=== PATIENT | female | born 1995 | race Two or more races ===

== ENCOUNTER 2016-10-06 22:46 | Emergency (ER) | payer SELFPAY ==
[2016-10-06] MEDS ORDERED: DIPHENHYDRAMINE HCL 50 MG CAPSULE PO ONE (23:44)
[2016-10-06] MEDS ORDERED: FAMOTIDINE 20 MG TABLET PO ONE (23:44)
--- NOTE | 2016-10-06 23:44 | ER Document Report ---
ED Allergic Reaction - General Chief Complaint: Possible Nut allergy Stated Complaint: POSSIBLE ALLERGIC REACTION Time Seen by Provider: 10/06/16 23:44 Mode of Arrival: Ambulatory Information source: Patient TRAVEL OUTSIDE OF THE [place] IN LAST 30 DAYS: No - HPI Patient complains to provider of: Possible allergic reaction Onset: Just prior to arrival Onset/Duration: Sudden Quality of pain: No pain Food exposure: Nuts Swelling: Lip(s) Associated symptoms: None Similar symptoms previously: No Recently seen / treated by doctor: No Notes: Patient is a 20-year-old female who presents to the emergency room complaining of possible allergic reaction, shortly before coming to the emergency room she eats some cheese and then drink some almond milk which she drinks and eats regularly, shortly after ingesting this she developed some itchiness in her mouth and felt as though the left upper lip was swollen, and she is now complaining of some posterior throat pain as well, no history of similar symptoms previously, she does have a known allergy to apples and peaches, she denies any difficulty swallowing or breathing, patient did not take anything for her symptoms prior to coming to the emergency room Past Medical History - General Information source: Patient - Social History Smoking Status: Never Smoker Family History: Reviewed & Not Pertinent Renal/ Medical History: Denies: Hx Peritoneal Dialysis Review of Systems - Review of Systems Constitutional: No symptoms reported EENT: See HPI Cardiovascular: No symptoms reported Respiratory: No symptoms reported Gastrointestinal: No symptoms reported Genitourinary: No symptoms reported Female Genitourinary: No symptoms reported Musculoskeletal: No symptoms reported Skin: No symptoms reported Hematologic/Lymphatic: No symptoms reported Neurological/Psychological: No symptoms reported -: Yes All other systems reviewed and negative Physical Exam - Vital signs Vitals: Temp Pulse Resp BP Pulse Ox 98.2 F 66 16 119/68 100 10/06/16 23:07 10/06/16 23:07 10/06/16 23:07 10/06/16 23:07 10/06/16 23:07 Interpretation: Normal - General General appearance: Appears well, Alert - HEENT Head: Normocephalic, Atraumatic Eyes: Normal Conjunctiva: Normal Extraocular movements intact: Yes Eyelashes: Normal Pupils: PERRL Pharynx: Erythema. No: Uvular edema, Potential airway comprom. - Respiratory Respiratory status: No respiratory distress Chest status: Nontender Breath sounds: Normal Chest palpation: Normal - Cardiovascular Rhythm: Regular Heart sounds: Normal auscultation Murmur: No - Abdominal Inspection: Normal Distension: No distension Bowel sounds: Normal Tenderness: Nontender Organomegaly: No organomegaly - Back Back: Normal, Nontender - Extremities General upper extremity: Normal inspection, Nontender, Normal color, Normal ROM , Normal temperature General lower extremity: Normal inspection, Nontender, Normal color, Normal ROM , Normal temperature, Normal weight bearing. No: Columba's sign - Neurological Neuro grossly intact: Yes Cognition: Normal Orientation: AAOx4 Jasiel Coma Scale Eye Opening: Spontaneous Jasiel Coma Scale Verbal: Oriented Jasiel Coma Scale Motor: Obeys Commands [place] Coma Scale Total: 15 Speech: Normal Motor strength normal: LUE, RUE, LLE, RLE Sensory: Normal - Psychological Associated symptoms: Normal affect, Normal mood - Skin Skin Temperature: Warm Skin Moisture: Dry Skin Color: Normal Course - Re-evaluation Re-evalutation: 10/07/16 00:50 Physical exam findings are unremarkable except for mild posterior pharynx erythema, patient was given a dose of Pepcid and Benadryl as well as a prescription for both of these, advised to follow-up with an fire fighter [facility], avoid almond milk and she is at this point in time until actual allergy can be established, patient acknowledges understanding and agreement with this plan - Vital Signs Vital signs: Temp Pulse Resp BP Pulse Ox 98.2 F 72 20 121/70 100 10/06/16 23:07 10/07/16 00:02 10/07/16 00:02 10/07/16 00:02 10/07/16 00:02 Discharge - Discharge Clinical Impression: Allergic reaction Condition: Stable Disposition: HOME, SELF-CARE Instructions: Acute Allergic Reaction ([facility]) Additional Instructions: Follow up with your primary care provider in one to 2 days. Return to the emergency room immediately if symptoms worsen or any additional concerns. Prescriptions: Diphenhydramine HCl [Benadryl 25 Mg Capsule] 25 mg PO Q6 #30 capsule Famotidine [Pepcid 20 mg Tablet] 20 mg PO BID #12 tablet
[2016-10-07 00:07] VITALS: BP 121/70
== END 2016-10-07 00:03 | disposition home or self-care (01) ==
LOC: ER 22:46
DX: T78.40XA Allergy, unspecified, initial encounter (principal); X58.XXXA Exposure to other specified factors, initial encounter
CPT/HCPCS: 99283

== ENCOUNTER 2017-03-11 12:29 | Emergency (ER) | payer SELFPAY ==
[2017-03-11 12:37] VITALS: BP 104/53
--- NOTE | 2017-03-11 14:02 | ER Document Report ---
ED General - General Mode of Arrival: Ambulatory Information source: Patient TRAVEL OUTSIDE OF THE [place] IN LAST 30 DAYS: No - HPI Patient complains to provider of: Generalized malaise and vaginal bleeding Onset: Other - see notes above Associated symptoms: Other - see notes above <SAMEERA GERMAIN - Last Filed: 03/11/17 15:52> <NIKOS CEE - Last Filed: 03/11/17 20:46> - General Chief Complaint: Vaginal Bleeding Stated Complaint: WEAK,ABDOMINAL PAIN,VAGINAL BLEEDING Time Seen by Provider: 03/11/17 13:54 Notes: 21-year-old female presents to the ED complaining of generalized malaise and headache for the past 2 weeks. Patient is additionally complaining of intermittent dizziness and lightheadedness that last a few seconds and intermittent moderate vaginal bleeding that started yesterday. Patient denies abdominal pain, vomiting, or diarrhea. Patient had a positive test 4 days ago, but when repeated 2 days ago the test was negative. Patient's last menstrual period was 3 months ago secondary to being on control. Patient stopped control 3 days ago. Patient receives [facility] AIDE care from the health department. (SAMEERA GERMAIN) - Related Data Allergies/Adverse Reactions: No Known Allergies Allergy (Unverified 03/11/17 12:33) Home Medications: Current Home Medications l-Norgest/E.estradiol-E.estrad [Seasonique 0.15-0.03-0.01 Tab] 1 each PO ASDIR 03/11/17 [History] Past Medical History - General Information source: Patient Last Menstrual Period: 12/10/16 - Social History Smoking Status: Unknown if Ever Smoked Chew tobacco use (# tins/day): No Frequency of alcohol use: None Drug Abuse: None Family History: Reviewed & Not Pertinent Patient has suicidal ideation: No Patient has homicidal ideation: No Renal/ Medical History: Denies: Hx Peritoneal Dialysis <SAMEERA GERMAIN - Last Filed: 03/11/17 15:52> Review of Systems - Review of Systems Constitutional: See HPI, Malaise EENT: No symptoms reported Cardiovascular: See HPI, Dizziness, Lightheaded Respiratory: No symptoms reported Gastrointestinal: No symptoms reported. denies: Abdominal pain, Diarrhea, Vomiting Genitourinary: No symptoms reported Female Genitourinary: See HPI, Last menstrual period - 3 months ago, Vaginal bleeding Musculoskeletal: No symptoms reported Skin: No symptoms reported Hematologic/Lymphatic: No symptoms reported Neurological/Psychological: See HPI, Headaches -: Yes All other systems reviewed and negative <SAMEERA GERMAIN - Last Filed: 03/11/17 15:52> Physical Exam - General General appearance: Alert In distress: None - HEENT Head: Normocephalic, Atraumatic Eyes: Normal Conjunctiva: Normal - No pallor of conjunctiva. Extraocular movements intact: Yes Pupils: PERRL - Respiratory Respiratory status: No respiratory distress Breath sounds: Normal - Cardiovascular Rhythm: Regular Heart sounds: Normal auscultation - Abdominal Inspection: Normal Distension: No distension Bowel sounds: Normal Tenderness: Nontender - Back Back: Normal - Extremities General upper extremity: Normal inspection, Normal ROM General lower extremity: Normal inspection, Normal ROM, Normal weight bearing - Neurological Neuro grossly intact: Yes Cognition: Normal Orientation: AAOx4 [place] Coma Scale Eye Opening: Spontaneous [place] Coma Scale Verbal: Oriented [place] Coma Scale Motor: Obeys Commands [place] Coma Scale Total: 15 Speech: Normal - Psychological Associated symptoms: Normal affect, Normal mood - Skin Skin Temperature: Warm Skin Moisture: Dry Skin Color: Normal <SAMEERA GERMAIN - Last Filed: 03/11/17 15:52> - Vital signs Vitals: Temp Pulse Resp BP Pulse Ox 99.0 F 78 16 104/53 L 99 03/11/17 12:36 03/11/17 12:36 03/11/17 12:36 03/11/17 12:36 03/11/17 12:36 Course - Laboratory Result Diagrams: 03/11/17 14:12 03/11/17 14:12 <SAMEERA GERMAIN - Last Filed: 03/11/17 15:52> - Laboratory Result Diagrams: 03/11/17 14:12 03/11/17 14:12 <NIKOS CEE - Last Filed: 03/11/17 20:46> - Re-evaluation Re-evalutation: 03/11/17 15:48 Patient found to have mild anemia with no baseline values in electronic medical record system. Patient well-appearing in no distress. Will be discharged with follow-up with primary care physician referral for outpatient iron studies as patient does have microcytic anemia. No evidence of on qualitative testing. Patient has stopped taking control pills over the last several days likely started menses due to her vaginal bleeding. Return precautions provided (NIKOS CEE) - Vital Signs Vital signs: Temp Pulse Resp BP Pulse Ox 99.0 F 78 16 104/53 L 99 03/11/17 12:36 03/11/17 12:36 03/11/17 12:36 03/11/17 12:36 03/11/17 12:36 - Laboratory Laboratory results interpreted by me: 03/11/17 03/11/17 14:12 14:12 Hgb 10.8 L Hct 33.2 L MCV 71 L MCH 23.0 L RDW 16.0 H Eosinophils % 6.8 H Urine Blood LARGE H Ur Leukocyte Esterase TRACE H Discharge <SAMEERA GERMAIN - Last Filed: 03/11/17 15:52> <NIKOS CEE - Last Filed: 03/11/17 20:46> - Discharge Clinical Impression: Anemia Qualifiers: Anemia type: unspecified type Qualified Code(s): D64.9 - Anemia, unspecified Condition: Stable Disposition: HOME, SELF-CARE Instructions: Anemia ([facility]) Additional Instructions: Follow up with your primary care provider and return to the ED for new or worsening symptoms. Scribe Attestation: 03/11/17 20:45 I personally performed the services described in the documentation, reviewed and edited the documentation which was dictated to the scribe in my presence, and it accurately records my words and actions. (NIKOS CEE) Scribe Documentation - Scribe Written by Barry:: Barry Egan, 03/11/2017 1543 acting as scribe for :: Wilmer <SAMEERA GERMAIN - Last Filed: 03/11/17 15:52>
[2017-03-11 14:23] LABS: ABSOLUTE BASOPHILS # (AUTO) 0.1 10^3/uL (0.0-0.2); ABSOLUTE EOSINOPHILS # (AUTO) 0.4 10^3/uL (0.0-0.6); ABSOLUTE LYMPHOCYTES (AUTO) 1.7 10^3/uL (0.5-4.7); ABSOLUTE MONOCYTES (AUTO) 0.4 10^3/uL (0.1-1.4); ABSOLUTE NEUT (AUTO) 3.5 10^3/uL (1.7-8.2); BASOPHILS % (AUTO) 1.7 % (0-2); EOSINOPHILS % (AUTO) 6.8 % (0-6); HEMATOCRIT 33.2 % (36.0-47.0); HEMOGLOBIN 10.8 g/dL (12.0-15.5); HGB HCT DIFFERENCE -0.8; LYMPHOCYTES % (AUTO) 27.2 % (13-45); MEAN CORPUSCULAR HGB CONC 32.5 g/dL (32.0-36.0); MEAN CORPUSCULAR VOLUME 71 fl (80-97); RED BLOOD COUNT 4.69 10^6/uL (3.72-5.28); SEGMENTED NEUTROPHILS % (AUTO) 57.3 % (42-78); WHITE BLOOD COUNT 6.1 10^3/uL (4.0-10.5)
[2017-03-11 14:28] LABS: APPEARANCE,URINE SLIGHTLY-CLOUDY; BILIRUBIN,URINE NEGATIVE (NEGATIVE); GLUCOSE, URINE NEGATIVE (NEGATIVE); KETONES,URINE NEGATIVE (NEGATIVE); LEUKOCYTE ESTERASE,URINE TRACE (NEGATIVE); NITRITE,URINE NEGATIVE (NEGATIVE); PROTEIN,URINE NEGATIVE (NEGATIVE); URINE SPECIFIC GRAVITY 1.014; UROBILINOGEN,URINE NEGATIVE mg/dL (<2.0)
[2017-03-11 14:37] LABS: RBC,URINE TOO NUMEROUS TO CNT /HPF; WBC,URINE RARE /HPF
[2017-03-11 14:46] LABS: ALANINE AMINOTRANSFERASE 27 U/L (9-52); ALBUMIN 4.5 g/dL (3.5-5.0); ALKALINE PHOSPHATASE 64 U/L (38-126); ANION GAP 14 (5-19); ASPARTATE AMINO TRANSFERASE 17 U/L (14-36); BILIRUBIN,DIRECT 0.2 mg/dL (0.0-0.4); BILIRUBIN,TOTAL 0.5 mg/dL (0.2-1.3); BLOOD UREA NITROGEN 12 mg/dL (7-20); CALCIUM 9.5 mg/dL (8.4-10.2); CARBON DIOXIDE 23 mmol/L (22-30); CHLORIDE 106 mmol/L (98-107); CREATININE RESULT 0.69 mg/dL (0.52-1.25); GLUCOSE 86 mg/dL (75-110); POTASSIUM 4.2 mmol/L (3.6-5.0); SODIUM 142.9 mmol/L (137-145); TOTAL PROTEIN 7.9 g/dL (6.3-8.2)
== END 2017-03-11 15:59 | disposition home or self-care (01) ==
LOC: ER 12:29
DX: D50.9 Iron deficiency anemia, unspecified (principal); R53.81 Other malaise; R51 Headache; R42 Dizziness and giddiness
CPT/HCPCS: 36415; 80053; 81001; 83690; 84703; 85025; 99284

== ENCOUNTER → 2017-05-16 | Outpatient (CLI) | payer OTHER ==
--- NOTE | 2017-05-16 19:30 | RADIOLOGY REPORT (SQ) ---
EXAM DESCRIPTION: U/S NON-OB PELVIS W/O DOP COMPLETED DATE/TIME: 05/16/2017 6:34 pm REASON FOR STUDY: PELVIC AND PERINEAL PAIN R10.2 PELVIC AND PERINEAL PAIN COMPARISON: None. TECHNIQUE: Dynamic and static grayscale images acquired of the pelvis via transabdominal approach an d recorded on PACS. Additional selected color Doppler and spectral images recorded. LIMITATIONS: None. FINDINGS: UTERUS: Contour normal. No mass. ENDOMETRIAL STRIPE: No focal or generalized thickening. No masses. CERVIX: No nabothian cysts. RIGHT OVARY: No abnormal masses. Simple appearing 2.8 cm cyst. RIGHT OVARY DOPPLER: Normal arterial vascular flow without evidence for torsion. LEFT OVARY: No abnormal masses. Simple appearing 1.7 cm cyst. LEFT OVARY DOPPLER: Normal arterial vascular flow without evidence for torsion. FREE FLUID: None noted. OTHER: No other significant finding. MEASUREMENTS: UTERUS: 9 x 4 x 5 cm ENDOMETRIAL STRIPE: 4 mm RIGHT OVARY: 4 x 3 x 3 cm LEFT OVARY: 3 x 2 x 2 cm IMPRESSION: Small bilateral simple appearing ovarian cysts measuring up to 2.8 cm. Doubtful clinica l significance, but in a patient presenting with pelvic pain, follow-up 6 week ultrasound to document resolution may prove helpful. TECHNICAL DOCUMENTATION: JOB ID: [id number] [employer]- All Rights Reserved
== END ==
LOC: RAD 17:56
PROVIDERS: ATTEND Nurse Practitioner Women's Health
DX: N83.292 Other ovarian cyst, left side (principal); N83.291 Other ovarian cyst, right side; R10.2 Pelvic and perineal pain
CPT/HCPCS: 76856

== ENCOUNTER 2017-05-20 14:38 | Emergency (ER) | payer OTHER ==
[2017-05-20 14:48] VITALS: BP 121/65
--- NOTE | 2017-05-20 15:17 | ER Document Report ---
HPI - HPI Pain Level: 2 Notes: Patient is a 21-year-old female with no significant past medical history presents to the ED complaining of a red swollen area to her right flank 2-3 days. Patient is not sure if she got bit by something, but has redness and pain to that area. Patient has not noticed any purulent discharge or large abscess. She has not noticed any red streaks. She is still eating and drinking without any difficulties. She is urinating normally and having normal bowel movements. Denies any history of MRSA. Denies any headache, fever, neck pain, URI, sore throat, chest pain, palpitations, syncope, cough, shortness of breath, wheeze, dyspnea, abdominal pain, nausea/vomiting/diarrhea, urinary retention, dysuria, hematuria, or rash. - ROS Systems Reviewed and Negative: Yes All other systems reviewed and negative - REPRODUCTIVE LMP: apr Past Medical History - Social History Smoking Status: Never Smoker Family History: Reviewed & Not Pertinent Renal/ Medical History: Denies: Hx Peritoneal Dialysis Vertical Provider Document - CONSTITUTIONAL Agree With Documented VS: Yes Notes: PHYSICAL EXAMINATION: GENERAL: Well-appearing, well-nourished and in no acute distress. A&Ox4 LUNGS: Breath sounds clear to auscultation bilaterally and equal. No wheezes rales or rhonchi. HEART: Regular rate and rhythm without murmurs, rubs, gallops. ABDOMEN: Soft, nontender, nondistended abdomen. No guarding, no rebound. No masses appreciated. Normal bowel sounds present. No CVA tenderness bilaterally. Extremities: No cyanosis, clubbing, or edema b/l. Peripheral pulses 2+. Capillary refill less than 3 seconds. NEUROLOGICAL: Normal speech, normal gait. Normal sensory, motor exams PSYCH: Normal mood, normal affect. SKIN: small 2cm diameter erythemic area, minimal induration w/o abscess. + tenderness. No fluid pocket noted. No streaks or purulence. - INFECTION CONTROL TRAVEL OUTSIDE OF THE [place] IN LAST 30 DAYS: No - RESPIRATORY O2 Sat by Pulse Oximetry: 100 Course - Re-evaluation Re-evalutation: 05/20/17 15:15 Patient is an afebrile, well-hydrated, 21-year-old female who presents to the ED with a small cellulitic area to the right flank. Vitals are stable. PE is otherwise unremarkable. No incision and drainage is warranted at this time based on H&P. No labs or imaging warranted at this time. Patient has no history of MRSA. Low suspicion for any sepsis, necrotizing fasciitis, venomous bite, shock, or other systemic emergent condition at this time. Patient to monitor symptoms closely and seek medical attention with any acute changes. I will send her home with a prescription for Keflex and Bactrim. Conservative measures otherwise for symptoms. Recheck with your PCM in 3-5 days. Return to the ED with any worsening/concerning symptoms otherwise as reviewed discharge. Patient is in agreement. - Vital Signs Vital signs: Temp Pulse Resp BP Pulse Ox 99 F 69 18 121/65 100 05/20/17 14:45 05/20/17 14:45 05/20/17 14:45 05/20/17 14:45 05/20/17 14:45 Discharge - Discharge Clinical Impression: Cellulitis Qualifiers: Site of cellulitis: trunk Site of cellulitis of trunk: abdominal wall Qualified Code(s): L03.311 - Cellulitis of abdominal wall Condition: Stable Disposition: HOME, SELF-CARE Instructions: Cellulitis ([facility]) Additional Instructions: Keep the skin clean Wash with soap and water Tylenol/ibuprofen if needed Triple antibiotic ointment daily Take medication as directed Monitor for any worsening symptoms Recheck with your PCM in 3-5 days Consider consult with General Surgeon for ongoing/worsening symptoms Return to the ED with any worsening symptoms and/or development of fever, headache, chest pain, palpitations, syncope, shortness of breath, trouble breathing, abdominal pain, n/v/d, abscess, purulent discharge, red streaks, worsening swelling, or other worsening symptoms that are concerning to you. Prescriptions: Cephalexin Monohydrate [Keflex 500 mg Capsule] 500 mg PO BID #20 capsule Sulfamethoxazole/Trimethoprim [Bactrim Ds Tablet] 1 each PO BID #20 tablet Referrals: KARMEN GAN MD [ACTIVE STAFF] - Follow up as needed
== END 2017-05-20 15:57 | disposition home or self-care (01) ==
LOC: ER 14:38
DX: L03.311 Cellulitis of abdominal wall (principal)
CPT/HCPCS: 99283

== ENCOUNTER 2017-09-06 08:17 | Emergency (ER) | payer OTHER ==
[2017-09-06 08:23] VITALS: BP 131/65
--- NOTE | 2017-09-06 09:24 | ER Document Report ---
HPI - HPI Pain Level: 2 Notes: Patient is a 21-year-old female no significant past medical history who presents to the ED complaining of a blister that she is on her foot for the last couple days and now redness starting across the top of her foot towards her ankle. Patient states that she has not noticed any obvious abscess or purulent discharge. She has not had any injury. Denies any drug allergies or history of MRSA. Patient states that at times the soreness runs proximally along the anterior lower leg/thigh, but not persistently. Patient states that on 2 occasions when she does feel that pain in her foot she felt some lightheadedness, but that has not happened in the last day. She is still eating and drinking without any difficulties. She is urinating normally and having normal bowel movements. No other concerns or complaints at this time. Denies any headache, fever, neck pain, URI, sore throat, chest pain, palpitations, syncope, cough, shortness of breath, wheeze, dyspnea, abdominal pain, nausea/vomiting/diarrhea, urinary retention, dysuria, hematuria, loss of control of bowel or bladder, numbness/tingling, muscle paralysis/weakness, or rash. - ROS Systems Reviewed and Negative: Yes All other systems reviewed and negative Past Medical History - Social History Smoking Status: Never Smoker Family History: Reviewed & Not Pertinent Patient has suicidal ideation: No Patient has homicidal ideation: No Pulmonary Medical History: Reports: Hx Bronchitis - as a child, Hx Pneumonia - as a child Renal/ Medical History: Denies: Hx Peritoneal Dialysis Vertical Provider Document - CONSTITUTIONAL Agree With Documented VS: Yes Notes: PHYSICAL EXAMINATION: GENERAL: Well-appearing, well-nourished and in no acute distress. LUNGS: Breath sounds clear to auscultation bilaterally and equal. No wheezes rales or rhonchi. HEART: Regular rate and rhythm without murmurs, rubs, gallops. Musculoskeletal: Left foot/ankle: FROM to passive/active. Strength 5+/5. N/V intact distal. Extremities: No cyanosis, clubbing, or edema b/l. Peripheral pulses 2+. Capillary refill less than 3 seconds. NEUROLOGICAL: Cranial nerves grossly intact. Normal speech, normal gait. Normal sensory, motor exams PSYCH: Normal mood, normal affect. SKIN: Left foot: There is an already drained blister-like area noted to the lateral distal foot without abscess or purulence. There is noted a small red streak across her foot moving proximally toward the ankle. + mild tenderness otherwise. - INFECTION CONTROL TRAVEL OUTSIDE OF THE [place] IN LAST 30 DAYS: No Course - Re-evaluation Re-evalutation: 09/06/17 09:22 Patient is an afebrile, well-hydrated, 21-year-old female who presents to the ED with infection to her left distal foot based on H&P today. Vitals are acceptable. PE is otherwise unremarkable for any neurovascular compromise, obvious tendon/ligament rupture, obvious fracture/dislocation, septic joint. No I&D warranted at this time. Patient has no significant tachycardia, tachypnea, or hypoxia. She is nontoxic-appearing. Patient is able to ambulate without difficulties. No other labs or imaging warranted at this time based on H&P. I will be sending her home with a prescription for Keflex and Bactrim to take as directed. Conservative measures otherwise for symptoms. Recheck with your PCM in 2-3 days. Return to the ED with any worsening/concerning symptoms otherwise as reviewed discharge. Patient is in agreement. - Vital Signs Vital signs: Temp Pulse Resp BP Pulse Ox 99.6 F 83 16 131/65 H 99 09/06/17 08:22 09/06/17 08:22 09/06/17 08:22 09/06/17 08:22 09/06/17 08:22 Discharge - Discharge Clinical Impression: Left foot infection Condition: Stable Disposition: HOME, SELF-CARE Additional Instructions: Keep the skin clean Wash with soap and water Tylenol/ibuprofen if needed Triple antibiotic ointment daily Take medication as directed Monitor for any worsening symptoms epsom salt soaks Recheck with your PCM in 2-3 days Return to the ED with any worsening symptoms and/or development of fever, headache, chest pain, palpitations, syncope, shortness of breath, trouble breathing, abdominal pain, n/v/d, abscess, purulent discharge, red streaks, worsening swelling, or other worsening symptoms that are concerning to you. Prescriptions: Cephalexin Monohydrate [Keflex 500 mg Capsule] 500 mg PO BID #20 capsule Sulfamethoxazole/Trimethoprim [Bactrim Ds Tablet] 1 each PO BID #20 tablet Forms: Elevated Blood Pressure Referrals: [facility] [Provider Group] - Follow up as needed [facility] [Provider Group] - Follow up as needed
== END 2017-09-06 09:30 | disposition home or self-care (01) ==
LOC: ER 08:17
DX: L08.9 Local infection of the skin and subcutaneous tissue, unspecified (principal)
CPT/HCPCS: 99283

== ENCOUNTER 2017-09-07 12:34 | Emergency (ER) | payer OTHER ==
[2017-09-07 12:54] VITALS: BP 123/60
--- NOTE | 2017-09-07 13:37 | ER Document Report ---
HPI - HPI Patient complains to provider of: rash after taking antibiotics Onset: Yesterday Onset/Duration: Gradual Pain Level: 1 Context: 21 yo female developed red pruritic rash after starting bactrim and keflex for foot infection which is getting betterl She did not show the provider the red streak up to mid lower leg which has not changed, but she has some tenderness left upper medial thigh. No fever. No chest pain or sob. Associated Symptoms: None Exacerbated by: Denies Relieved by: Denies Similar symptoms previously: No Recently seen / treated by doctor: Yes - ROS ROS below otherwise negative: Yes Systems Reviewed and Negative: Yes All other systems reviewed and negative Past Medical History - General Information source: Patient - Social History Smoking Status: Never Smoker Frequency of alcohol use: None Drug Abuse: None Lives with: Family Family History: Reviewed & Not Pertinent Pulmonary Medical History: Reports: Hx Bronchitis - as a child, Hx Pneumonia - as a child Renal/ Medical History: Denies: Hx Peritoneal Dialysis Surgical Hx: Negative Vertical Provider Document - CONSTITUTIONAL Agree With Documented VS: Yes Exam Limitations: No Limitations General Appearance: No Apparent Distress - INFECTION CONTROL TRAVEL OUTSIDE OF THE [place] IN LAST 30 DAYS: No - NECK Neck: Supple - RESPIRATORY Respiratory: Breath Sounds Normal, No Respiratory Distress - CARDIOVASCULAR Cardiovascular: Regular Rate, Regular Rhythm - NEURO Level of Consciousness: Awake - DERM Integumentary: Rash - red generalized drug rash to upper medial thighs,k abdomen , neck Notes: fading erythema to left lateral distal foot, pink lyphangitis to medial left lower leg, marked with tapel, no nodes medial left upper medial thigh. Course - Vital Signs Vital signs: Temp Pulse Resp BP Pulse Ox 99.9 F 102 H 16 123/60 98 09/07/17 12:52 09/07/17 12:52 09/07/17 12:52 09/07/17 12:52 09/07/17 12:52 Discharge - Discharge Clinical Impression: Lymphangitis, Foot infection, Drug rash Condition: Good Disposition: HOME, SELF-CARE Instructions: Clindamycin ([facility]), Drug Effects ([facility]), Lymphadenopathy ([facility]) Additional Instructions: Stop the cephalexin and Septra I suspect it is the Septra that caused this rash Start the clindamycin The red streak is been marked with a pen and that red streak should decrease and go below the pen dionisio as the infection clears Return to the emergency room for fever chills increased pain or redness. no sun exposure Prescriptions: Clindamycin HCl [Cleocin 150 mg Capsule] 300 mg PO TID #42 capsule Forms: Return to Work
[2017-09-07] MEDS ORDERED: DIPHENHYDRAMINE HCL 50 MG CAPSULE PO ONE (13:47)
[2017-09-07] MEDS ORDERED: CLINDAMYCIN HCL 150 MG CAPSULE PO ONE (13:47)
== END 2017-09-07 14:08 | disposition home or self-care (01) ==
LOC: ER 12:34
DX: I89.1 Lymphangitis (principal); L08.9 Local infection of the skin and subcutaneous tissue, unspecified; L27.1 Localized skin eruption due to drugs and medicaments taken internally; T37.0X5A Adverse effect of sulfonamides, initial encounter; X58.XXXA Exposure to other specified factors, initial encounter
CPT/HCPCS: 99283

== ENCOUNTER 2018-01-08 00:16 | Emergency (ER) | payer SELFPAY ==
[2018-01-08 00:45] VITALS: BP 120/68
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
== END 2018-01-08 02:18 | disposition home or self-care (01) ==
LOC: ER 00:16
DX: R20.0 Anesthesia of skin (principal)
CPT/HCPCS: 99283

== ENCOUNTER 2019-03-01 19:31 | Inpatient (IN) | payer MEDICAID ==
[2019-03-01] MEDS ORDERED: RINGERS SOLUTION,LACTATED 1,000 ML IV ONE (19:50)
[2019-03-01] MEDS ORDERED: RINGERS SOLUTION,LACTATED 1,000 ML IV PRN (19:50)
[2019-03-01] MEDS ORDERED: OXYTOCIN/NORMAL SALINE 20 UNIT/1,000 ML RTUINJ ONE (20:00)
[2019-03-01] MEDS ORDERED: LIDOCAINE 1% INJ-PF (10 MG/ML) 30 ML SDV ONE (20:00)
[2019-03-01] MEDS ORDERED: OXYTOCIN 10 UNIT/ML VIAL ONE (20:00)
[2019-03-01] MEDS ORDERED: MISOPROSTOL 0.2 MG TABLET ONE (20:00)
[2019-03-01] MEDS ORDERED: PENICILLIN G POTASSIUM 5,000,000 UNIT in DEXTROSE 5%-WATER 100 ML IV ONE (20:01)
[2019-03-01] MEDS ORDERED: PENICILLIN G-K 5 MILLION UNIT VIAL ONE ×2 (20:09→23:23)
[2019-03-01 20:38] LABS: APPEARANCE,URINE CLOUDY; BILIRUBIN,URINE NEGATIVE (NEGATIVE); COLOR,URINE YELLOW; GLUCOSE, URINE NEGATIVE (NEGATIVE); KETONES,URINE NEGATIVE (NEGATIVE); LEUKOCYTE ESTERASE,URINE MODERATE (NEGATIVE); NITRITE,URINE NEGATIVE (NEGATIVE); PROTEIN,URINE NEGATIVE (NEGATIVE); URINE SPECIFIC GRAVITY 1.005; UROBILINOGEN,URINE NEGATIVE mg/dL (<2.0)
[2019-03-01 20:51] LABS: ABSOLUTE EOSINOPHILS # (AUTO) 0.1 10^3/uL (0.0-0.6); ABSOLUTE LYMPHOCYTES (AUTO) 1.3 10^3/uL (0.5-4.7); ABSOLUTE MONOCYTES (AUTO) 0.6 10^3/uL (0.1-1.4); BASOPHILS % (AUTO) 0.4 % (0-2); HEMATOCRIT 39.2 % (36.0-47.0); HEMOGLOBIN 13.3 g/dL (12.0-15.5); LYMPHOCYTES % (AUTO) 12.1 % (13-45); MEAN CORPUSCULAR HEMOGLOBIN 29.6 pg (27.0-33.4); MEAN CORPUSCULAR VOLUME 87 fl (80-97); MONOCYTES % (AUTO) 5.6 % (3-13); PLATELET COUNT 172 10^3/uL (150-450); RED CELL DISTRIBUTION WIDTH 14.8 % (11.5-14.0); SEGMENTED NEUTROPHILS % (AUTO) 80.9 % (42-78); TOTAL CELLS COUNTED % (AUTO) 100 %; WHITE BLOOD COUNT 11.1 10^3/uL (4.0-10.5)
[2019-03-01 20:53] LABS: URINE AMPHETAMINES SCREEN NEGATIVE; URINE BARBITURATES SCREEN NEGATIVE; URINE BENZODIAZEPINES SCREEN NEGATIVE; URINE COCAINE SCREEN NEGATIVE; URINE MARIJUANA (THC) SCREEN NEGATIVE; URINE PHENCYCLIDINE SCREEN NEGATIVE
[2019-03-01 21:09] LABS: URINE METHADONE SCREEN NEGATIVE
--- NOTE | 2019-03-01 23:07 | Admission Physical ---
Datetime Report Generated by CPN: 03/01/2019 23:07 CURRENT ADMISSION Chief Complaint: Uterine Contractions Indication for Induction: Not Applicable Admit Impression : Term, Intrauterine Admit Plan: Initiate Labor Protocol ALLERGIES Medication Allergies: Yes Medication Allergies: No Known Allergies (01/08/2018) Latex: No Latex Allergies OBSTETRICAL HISTORY EDC: 02/19/2019 00:00 : 2 Para: 0 Term: 0 : 0 SAB: 0 IAB: 0 Ectopic: 0 Livin Cesareans: 0 VBACs: 0 Multiple Births: 0 Gestational Diabetes: No Rh Sensitization: No Incompetent Cervix: No RAMOS: No Infertility: No ART Treatment: No Uterine Anomaly: No IUGR: No Hx Previous C/S: No Macrosomia: No Hx Loss/Stillborn: No PIH: No Hx : No Placenta Previa/Abruption: No Depression/PP Depression: No PTL/PROM: No Post Hemorrhage: No Obstetrical History Comments: G1- 5week SAB G2- current SEE RECORDS Alcohol: No Marijuana : No Cocaine: No Other Illicit Drugs: No Cigarettes: Never Smoker. 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 Surgery: No Heart Disease: No Hosp/Surgery: No Autoimmune Disorder: No Anesthetic Complications: No Kidney Disease: No Abnormal Pap Smear: No Neuro/Epilepsy: No Psychiatric Disorders: No Other Medical Diseases: No Hepatitis/Liver Disease: No Significant Family History: No Varicosities/Phlebitis: No Trauma/Violence : No Thyroid Dysfunction: No INFECTIOUS HISTORY Gonorrhea: No Genital Herpes: No Chlamydia: No Tuberculosis: No Syphilis: No Hepatitis: No HIV/AIDS Exposure: No Rash or Viral Illness: No HPV: No PHYSICAL EXAM General: Normal HEENT: Normal Neurologic: Normal Thyroid: Normal Heart: Normal Lungs: Normal Breast: Deferred Back: Normal Abdomen: Normal Genitourinary Exam: Normal Extremities: Normal DTRs: Normal Pelvic Type: Adequate FETUS A EGA: 41.3 PLANS FOR LABOR AND DELIVERY Labor and Delivery: None Pain Management: None Benefit of Breast Feed Discussed: Yes Circumcision: N/A INFORMED CONSENT Signature: with User ID: [email or web address]
[2019-03-01] MEDS: PENICILLIN G POTASSIUM 2,500,000 UNIT in DEXTROSE 5%-WATER 50 ML IV SCH (23:29)
[2019-03-02] MEDS ORDERED: FENTANYL/BUPIVACAINE/NS/PF 300 MCG/150 ML RTUINJ EPI ONE (00:23)
[2019-03-02] MEDS ORDERED: BUPIVACAINE HCL 0.25 % INJ/PF (2.5 MG/1 ML) 30 ML VIAL ONE (00:23)
[2019-03-02] MEDS ORDERED: EPHEDRINE SULFATE INJ 50 MG/1 ML AMPULE ONE (00:23)
[2019-03-02] MEDS ORDERED: PENICILLIN G-K 5 MILLION UNIT VIAL ONE ×2 (03:00→07:31)
[2019-03-02] MEDS: PENICILLIN G POTASSIUM 2,500,000 UNIT in DEXTROSE 5%-WATER 50 ML IV SCH ×3 (03:31→13:26)
[2019-03-02] MEDS ORDERED: OXYTOCIN/NORMAL SALINE 20 UNIT/1,000 ML RTUINJ IV PRN ×2 (04:33→12:22)
[2019-03-02] MEDS ORDERED: DIPHENHYDRAMINE HCL 50 MG/ML VIAL IV ONE (07:36)
[2019-03-02] MEDS ORDERED: DIPHENHYDRAMINE HCL 50 MG/ML VIAL ONE (07:38)
[2019-03-02] MEDS ORDERED: SODIUM BICARBONATE 8.4% INJ 50 MEQ/50 ML DISP.SYRIN ONE (07:55)
[2019-03-02] MEDS ORDERED: LIDOCAINE 2%/EPINEPHRINE INJ 20 ML VIAL ONE (07:55)
[2019-03-02] MEDS ORDERED: ONDANSETRON HCL INJ/PF 4 MG/2 ML SDV ONE ×2 (08:16→11:16)
[2019-03-02] MEDS ORDERED: FENTANYL CITRATE INJ/PF 100 MCG/2 ML AMPUL ONE (11:15)
[2019-03-02] MEDS ORDERED: PHENYLEPHRINE HCL INJ/PF 10 MG/1 ML SDV ONE (11:15)
[2019-03-02] MEDS ORDERED: LIDOCAINE 2% INJ-PF (20 MG/ML) 10 ML AMPUL ONE (11:15)
[2019-03-02] MEDS ORDERED: KETOROLAC TROMETHAMINE INJ/PF 30 MG/1 ML SDV ONE (11:15)
[2019-03-02] MEDS ORDERED: ACETAMINOPHEN 1,000 MG/100 ML RTUPB IV ONE (11:16)
[2019-03-02] MEDS ORDERED: AZITHROMYCIN INJ 500 MG VIAL IV ONE ×2 (11:16→11:20)
[2019-03-02] MEDS ORDERED: CITRIC ACID/SODIUM CITRATE ORAL SOLN 15 ML UDCUP ONE (11:17)
[2019-03-02] MEDS ORDERED: AZITHROMYCIN 500 MG in DEXTROSE 5%-WATER 250 ML IV ONE (12:00)
[2019-03-02] MEDS ORDERED: SIMETHICONE 80 MG TAB.CHEW PO PRN (12:22)
[2019-03-02] MEDS ORDERED: RINGERS SOLUTION,LACTATED 1,000 ML IV PRN (12:22)
[2019-03-02] MEDS ORDERED: MEASLES,MUMPS&RUBELLA VACC/PF 0.5 ML VIAL SUBCUT PRN (12:22)
[2019-03-02] MEDS ORDERED: OXYCODONE-ACETAMINOPHEN 5-325 MG TABLET PO PRN ×2 (12:22)
[2019-03-02] MEDS ORDERED: DIPH/PERTUSS(ACELL)/TETANUS VAC/PF 0.5 ML SYR (>=10YO) IM PRN (12:22)
[2019-03-02] MEDS ORDERED: PROMETHAZINE HCL INJ 25 MG/1 ML VIAL IV PRN (12:22)
[2019-03-02] MEDS ORDERED: MORPHINE SULFATE 10 MG/ML INJ IV PRN (12:22)
[2019-03-02] MEDS ORDERED: ACETAMINOPHEN 1,000 MG/100 ML RTUPB IV PRN (12:22)
[2019-03-02] MEDS ORDERED: ACETAMINOPHEN 325 MG TABLET PO PRN (12:22)
--- NOTE | 2019-03-02 12:29 | Operative Report ---
Operative Report DATE OF SURGERY: 03/02/19 PREOPERATIVE DIAGNOSIS: IUP @ 41 3/, failure to progress, chorioamnionitis POSTOPERATIVE DIAGNOSIS: Same OPERATION: Low transverse hysterotomy section SURGEON: BILL BROWNING ANESTHESIA: Epidural COMPLICATIONS: None ESTIMATED BLOOD LOSS: 750 cc INTRAOPERATIVE FINDINGS: Female cephalic presentation LOP position Apgars of 8 and 9 purulent amniotic fluid PROCEDURE: PROCEDURE IN DETAIL: The patient was taken to the operating room, prepared and draped in a normal sterile fashion in a supine position with a leftward tilt. A transverse skin incision was made with a scalpel and carried through to the underlying layer of fascia with the same scalpel. The fascia was excised in the midline and extended laterally with Shelley. The fascia was then dissected from the rectus muscle sharply with Shelley and the rectus muscle was divided and the peritoneal cavity was entered sharply with the same Metzenbaum. With good visualization of the bladder and the uterus the bladder blade was inserted. The hysterotomy was nicked with a scalpel and extended laterally with surgeon finger fraction. The was then delivered atraumatically. The nose and mouth were suctioned with a suction bulb, the cord was clamped and cut and handed off to awaiting pediatricians. Cord blood was collected. The placenta was removed manually. The uterus was exteriorized and cleared of clots and debris. The hysterotomy was closed with 0 Monocryl in a running, locked fashion. A second layer of the same suture was used to imbricate to ensure hemostasis. The uterus was returned to the abdomen and peritoneal cavity was cleared of clots and debris. The rectus muscle and peritoneum were repaired with mattress stitch of 2-0 Chromic. The fascia was closed with 0-Vicryl. The subcutaneous layer was closed with plain catgut and the skin was closed with 4-0 Vicryl. The patient tolerated the procedure well. Sponge, lap, and needle counts correct x2 and the patient was taken to recovery in stable condition.
[2019-03-02] MEDS ORDERED: MORPHINE SULFATE 10 MG/ML INJ ONE (12:40)
[2019-03-02] MEDS ORDERED: OXYTOCIN/NORMAL SALINE 20 UNIT/1,000 ML RTUINJ ONE (12:57)
--- NOTE | 2019-03-02 14:40 | Delivery Summary ---
Del Sum A-C Datetime Report Generated by CPN: 03/02/2019 14:40 DELIVERY PERSONNEL DELIVERY PERSONNEL: [id number] Delivery Doctor:: Jihan Nixon MD Anesthesiologist:: Rhoda Pantoja MD BIAS CUTTING MACHINE OPERATOR:: Caterina Ceja CRNA Labor and Delivery Nurse:: Sarahi Riggins RN Formula Weigher:: Sarahi Riggins RN Nursery Nurse:: Ana Paula Woodward RN Nursery Nurse:: Shahzad Shi RN Student Observers:: Ingrid HUNT Mechanical Energy Engineer/MEAT AND POULTRY INSPECTOR: [facility] [place] Mechanical Energy Engineer/MEAT AND POULTRY INSPECTOR: Clara Lerma, LEGAL PRACTICE MANAGER MATERNAL INFORMATION Delivery Anesthesia: Epidural Medications After Delivery: Pitocin Bolus-Please Comment Meds After Delivery Comment: pitocin 20 units in 1000mL nss Delivery QBL: 590 Maternal Complications: Prolonged Labor > 20 Hrs LABOR SUMMARY EDC: 02/19/2019 00:00 No. Babies in Womb: 1 Attempted: No Labor Anesthesia: Epidural LABOR INFORMATION Reason for Induction: Not Applicable Onset of Labor: 03/01/2019 12:30 Oxytocin: Augmentation Group B Beta Strep: positive Antibiotics # of Doses: 3 Antibiotics Time of Last Dose: 729 Name of Antibiotic Given: PCN Steroids Given: None Reason Steroids Not Administered: Not Applicable MEMBRANES Membranes Rupture Method: Artificial Rupture of Membranes: 03/01/2019 23:04 Length of Rupture (hr): 12.73 Amniotic Fluid Color: Clear Amniotic Fluid Amount: Moderate Amniotic Fluid Odor: Normal STAGES OF LABOR Stage 3 hr: 0 Stage 3 min: 1 Total Time in Labor hr: 23 Total Time in Labor min: 19 VAGINAL DELIVERY Episiotomy: None Laceration #1: None Laceration Repair: Not Applicable Sponge Count Correct: N/A Sharps Count Correct: N/A CSECTION DELIVERY Primary Indication: Prolonged Active Phase CSection Urgency: Non-Scheduled CSection Incidence: Primary Labor: Labor Elective: Nonelective CSection Incision: Lower Uterine Transverse BABY A INFORMATION Delivery Date/Time: 03/02/2019 11:48 Method of Delivery: Born in Route : No : N/A Forceps: N/A Vacuum Extraction: N/A Shoulder Dystocia : No PRESENTATION/POSITION BABY A Presentation: Cephalic Cephalic Presentation: Vertex Breech Presentation: N/A PLACENTA INFORMATION BABY A Placenta Delivery Time : 03/02/2019 11:49 Placenta Method of Delivery: Manual Removal Placenta Status: Delivered SCORES BABY A Heart Rate 1 min: >100 bpm Resp Effort 1 min: Good Cry Reflex Irritability 1 min: Cough or Sneeze or Pulls Away Muscle Tone 1 min: Active Motion Color 1 min: Body [place], Extremities Blue Resuscitation Effort 1 min: Tactile Stimulation SCORE 1 MIN: 9 Heart Rate 5 min: >100 bpm Resp Effort 5 min: Good Cry Reflex Irritability 5 min: Cough or Sneeze or Pulls Away Muscle Tone 5 min: Active Motion Color 5 min: Body [place], Extremities Blue Resuscitation Effort 5 min: Tactile Stimulation SCORE 5 MIN: 9 INFANT INFORMATION BABY A Gestational Age at Delivery: 41.4 Gestational Status: Late Term- 41- 41.6 Weeks Outcome : Liveborn Infant Condition : Stable Sex: Female IDENTIFICATION BABY A Infant Verification Date/Time: 03/02/2019 11:58 ID Band Number: [id number] Mother's Name Verified: Yes RN Verifying : B Gilson RN Additional Verifying Personnel: Michael Woodward RN WEIGHT/LENGTH BABY A Infant Birthweight (gm): 3430 Infant Weight (lb): 7 Weight (oz): 9 Length (in): 20.00 Infant Length (cm): 50.80 CORD INFORMATION BABY A No. Cord Vessels: 3 Nuchal Cord : N/A Cord Blood Taken: Yes-For Eval (Mom's Blood Type - or O+) Infant Suction: None ASSESSMENT BABY A Physical Findings at Delivery: Caput Succedaneum Infant Respirations: Appears Normal Skin to Skin: Yes Clerical Adjudicator/ALS Called : Yes Care By: Michael Woodward RN Transferred To: Nursery BABY B INFORMATION : N/A
[2019-03-02] MEDS: KETOROLAC TROMETHAMINE INJ/PF 30 MG/1 ML SDV IV SCH ×2 (14:50→22:25)
[2019-03-02] MEDS: IBUPROFEN 800 MG TABLET PO SCH (17:35)
[2019-03-02] MEDS: DOCUSATE SODIUM 100 MG CAPSULE PO SCH (17:35)
[2019-03-03] MEDS: IBUPROFEN 800 MG TABLET PO SCH ×4 (00:05→19:01)
[2019-03-03 06:22] LABS: HEMATOCRIT 30.5 % (36.0-47.0); MEAN CORPUSCULAR HEMOGLOBIN 29.9 pg (27.0-33.4); MEAN CORPUSCULAR HGB CONC 34.7 g/dL (32.0-36.0); MEAN CORPUSCULAR VOLUME 86 fl (80-97); PLATELET COUNT 141 10^3/uL (150-450); RED BLOOD COUNT 3.54 10^6/uL (3.72-5.28); RED CELL DISTRIBUTION WIDTH 14.5 % (11.5-14.0); WHITE BLOOD COUNT 12.6 10^3/uL (4.0-10.5)
[2019-03-03 06:24] LABS: HEMOGLOBIN 10.6 g/dL (12.0-15.5)
--- NOTE | 2019-03-03 08:54 | PDOC PROGRESS REPORT ---
Subjective-OB Progress Note for:: 03/03/19 Subjective: Doing well, pain under control, OOB standing and eating well, family at BS, passing gas Physical Exam (OB) Vital Signs: Temp Pulse Resp BP Pulse Ox 98.0 F 85 18 119/72 100 03/03/19 07:18 03/03/19 07:18 03/03/19 07:18 03/03/19 07:18 03/03/19 07:18 Intake & Output 03/02/19 03/03/19 03/04/19 06:59 06:59 06:59 Output Total 1760 Balance -1760 Weight 96 kg - PIH/Pre-Eclampsia Headache: Absent Epigastric Pain: No Visual Changes: No - Dressing Removed: No - Opsite Incision: Dressing Closure Type: Surgical Glue - Lochia Lochia Amount: Small 10-25 ml Lochia Color: Rubra/Red - Abdomen Description: Tender, Soft Hernia Present: No Fundal Description: Firm, Midline Fundal Height: u/3 - u/4 Objective-Diagnostic Laboratory: 03/03/19 06:08 03/03/19 06:08 WBC 12.6 H RBC 3.54 L Hgb 10.6 L D Hct 30.5 L MCV 86 MCH 29.9 MCHC 34.7 RDW 14.5 H Plt Count 141 L Assessment and Plan(PN) - Assessment and Plan (1) Anemia due to acute blood loss Is this a current diagnosis for this admission?: Yes (2) GBS (group B Streptococcus carrier), +RV culture, currently Is this a current diagnosis for this admission?: Yes (3) S/P primary low transverse Is this a current diagnosis for this admission?: Yes - Time Spent with Patient Time with patient: Less than 15 minutes Medications reviewed and adjusted accordingly: Yes - Disposition Anticipated Discharge: Home Within: within 24 hours
[2019-03-03] MEDS: LEVOFLOXACIN 750 MG/D5W RTU 750 MG/150 ML RTUPB IV SCH (09:44)
[2019-03-03] MEDS: KETOROLAC TROMETHAMINE INJ/PF 30 MG/1 ML SDV IV SCH (09:44)
[2019-03-03] MEDS: DOCUSATE SODIUM 100 MG CAPSULE PO SCH ×2 (09:45→19:01)
[2019-03-03] MEDS: PRENATAL VITAMIN W DHA CAPSULE PO SCH (09:45)
[2019-03-04] MEDS: IBUPROFEN 800 MG TABLET PO SCH ×3 (01:01→11:47)
--- NOTE | 2019-03-04 08:57 | PDOC PROGRESS REPORT ---
Subjective-OB Progress Note for:: 03/04/19 Subjective: Doing well, no c/o, ready to go home, voiding, passing gas, limited pain meds, fmily at BS Physical Exam (OB) Vital Signs: Temp Pulse Resp BP Pulse Ox 97.9 F 82 16 121/63 100 03/04/19 07:53 03/04/19 07:53 03/04/19 07:53 03/04/19 07:53 03/04/19 07:53 Intake & Output 03/03/19 03/04/19 03/05/19 06:59 06:59 06:59 Intake Total 300 Output Total 1760 1550 Balance -1760 -1250 - PIH/Pre-Eclampsia Clonus: Negative Headache: Absent Epigastric Pain: No Visual Changes: No - Dressing Removed: No Incision: Dressing Closure Type: opsite - Bilateral Tubal Ligation Dressing Removed: No - Lochia Lochia Amount: Scant < 10 ml Lochia Color: Rubra/Red - Abdomen Description: Tender, Soft Hernia Present: No Fundal Description: Firm, Midline Fundal Height: u/3 - u/4 Objective-Diagnostic Laboratory: 03/03/19 06:08 Assessment and Plan(PN) - Assessment and Plan (1) Anemia due to acute blood loss Is this a current diagnosis for this admission?: Yes (2) GBS (group B Streptococcus carrier), +RV culture, currently Is this a current diagnosis for this admission?: Yes (3) S/P primary low transverse Is this a current diagnosis for this admission?: Yes - Time Spent with Patient Time with patient: Less than 15 minutes Medications reviewed and adjusted accordingly: Yes - Disposition Anticipated Discharge: Home Within: within 24 hours
--- NOTE | 2019-03-04 09:03 | PDOC DISCHARGE SUMMARY ---
Impression - Admit/DC Date/PCP Admission Date/Primary Care Provider: 03/01/19 20:10 SIOBHAN OLIVER MD Discharge Date: 03/04/19 - Discharge Diagnosis (1) Anemia due to acute blood loss Is this a current diagnosis for this admission?: Yes (2) GBS (group B Streptococcus carrier), +RV culture, currently Is this a current diagnosis for this admission?: Yes (3) S/P primary low transverse Is this a current diagnosis for this admission?: Yes - Additional Information Resuscitation Status: Full Code Discharge Diet: As Tolerated, Regular Discharge Activity: Activity As Tolerated, No Lifting Over 10 Pounds, No Lifting/Push/Pulling, Pelvic Rest, No tub bath Referrals: SIOBHAN OLIVER MD [Primary Care Provider] - (1 week) Prescriptions: Oxycodone HCl/Acetaminophen [Percocet 5-325 mg Tablet] 1 tab PO Q4HP PRN #20 tablet PRN Reason: Ibuprofen [Motrin 800 mg Tablet] 800 mg PO Q6 #30 tablet Home Medications: Ibuprofen [Motrin 800 mg Tablet] 800 mg PO Q6 #30 tablet 03/04/19 Oxycodone HCl/Acetaminophen [Percocet 5-325 mg Tablet] 1 tab PO Q4HP PRN #20 tablet 03/04/19 Vit/Dha [ Multi + Dha Capsule] 1 cap PO DAILY capsule 03/04/19 HPI Gestational Age: 41.4 Reason(s) for Admission: Ceasarean Section-Primary Procedures: NST, Ultrasound Intrapartum Procedure(s): : Low Cervical, Transverse Hospital Course Hospital Course: routin post op Results Laboratory Results: WBC 12.6 10^3/uL (4.0-10.5) H 03/03/19 06:08 RBC 3.54 10^6/uL (3.72-5.28) L 03/03/19 06:08 Hgb 10.6 g/dL (12.0-15.5) L D 03/03/19 06:08 Hct 30.5 % (36.0-47.0) L 03/03/19 06:08 MCV 86 fl (80-97) 03/03/19 06:08 MCH 29.9 pg (27.0-33.4) 03/03/19 06:08 MCHC 34.7 g/dL (32.0-36.0) 03/03/19 06:08 RDW 14.5 % (11.5-14.0) H 03/03/19 06:08 Plt Count 141 10^3/uL (150-450) L 03/03/19 06:08 Lymph % (Auto) 12.1 % (13-45) L 03/01/19 20:35 [place]ady % (Auto) 5.6 % (3-13) 03/01/19 20:35 Eos % (Auto) 1.0 % (0-6) 03/01/19 20:35 Baso % (Auto) 0.4 % (0-2) 03/01/19 20:35 Absolute Neuts (auto) 9.0 10^3/uL (1.7-8.2) H 03/01/19 20:35 Absolute Lymphs (auto) 1.3 10^3/uL (0.5-4.7) 03/01/19 20:35 Absolute Monos (auto) 0.6 10^3/uL (0.1-1.4) 03/01/19 20:35 Absolute Eos (auto) 0.1 10^3/uL (0.0-0.6) 03/01/19 20:35 Absolute Basos (auto) 0.0 10^3/uL (0.0-0.2) 03/01/19 20:35 Seg Neutrophils % 80.9 % (42-78) H 03/01/19 20:35 Urine Color YELLOW 03/01/19 19:40 Urine Appearance CLOUDY 03/01/19 19:40 Urine pH 7.0 (5.0-9.0) 03/01/19 19:40 Ur Specific [place] 1.005 03/01/19 19:40 Urine Protein NEGATIVE mg/dL (NEGATIVE) 03/01/19 19:40 Urine Glucose (UA) NEGATIVE mg/dL (NEGATIVE) 03/01/19 19:40 Urine Ketones NEGATIVE mg/dL (NEGATIVE) 03/01/19 19:40 Urine Blood LARGE (NEGATIVE) H 03/01/19 19:40 Urine Nitrite NEGATIVE (NEGATIVE) 03/01/19 19:40 Urine Bilirubin NEGATIVE (NEGATIVE) 03/01/19 19:40 Urine Urobilinogen NEGATIVE mg/dL (<2.0) 03/01/19 19:40 Ur Leukocyte Esterase MODERATE (NEGATIVE) H 03/01/19 19:40 Urine Ascorbic Acid NEGATIVE (NEGATIVE) 03/01/19 19:40 Urine Opiates Screen NEGATIVE 03/01/19 19:40 Urine Methadone Screen NEGATIVE 03/01/19 19:40 Ur Barbiturates Screen NEGATIVE 03/01/19 19:40 Ur Phencyclidine Scrn NEGATIVE 03/01/19 19:40 Ur Amphetamines Screen NEGATIVE 03/01/19 19:40 U Benzodiazepines Scrn NEGATIVE 03/01/19 19:40 Urine Cocaine Screen NEGATIVE 03/01/19 19:40 U Marijuana (THC) Screen NEGATIVE 03/01/19 19:40 RPR NONREACTIVE (NONREACTIVE) 03/01/19 20:35 Blood Type O POSITIVE 03/01/19 20:35 Antibody Screen NEGATIVE 03/01/19 20:35 Plan Health Concerns: normal Plan of Treatment: pain meds prn, tylenol and motrin alternating Goals: normal, no problems Time Spent: Less than 30 Minutes
[2019-03-04] MEDS: DOCUSATE SODIUM 100 MG CAPSULE PO SCH (09:20)
[2019-03-04] MEDS: PRENATAL VITAMIN W DHA CAPSULE PO SCH (09:20)
[2019-03-04] MEDS: LEVOFLOXACIN 750 MG/D5W RTU 750 MG/150 ML RTUPB IV SCH (09:21)
[2019-03-04 11:52] VITALS: BP 115/70
== END 2019-03-04 15:11 | disposition home or self-care (01) | DRG 786 ==
LOC: LC 19:31 → LR 20:10 → 2S 03-02 14:19
PROVIDERS: ADMIT Obstetrics & Gynecology Gynecology; ATTEND Obstetrics & Gynecology
PROC: 10D00Z1 Extraction of Products of Conception, Low, Open Approach (ICD-10-PCS; principal; 2019-03-02)
DX: O62.1 Secondary uterine inertia (principal); O41.1230 Chorioamnionitis, third trimester, not applicable or unspecified; D62 Acute posthemorrhagic anemia; O99.824 Streptococcus B carrier state complicating childbirth; O99.02 Anemia complicating childbirth; Z3A.41 41 weeks gestation of pregnancy; Z37.0 Single live birth
CPT/HCPCS: 1961; 36415; 80307; 81005; 85025; 85027; 86592; 86850; 86900; 86901; 94760; 94799; J0131; J0456; J1200; J1885; J1956; J2270; J2370; J2405; J2540; J2590; J3010; J3490; J7060; J7120

== ENCOUNTER 2020-04-19 03:48 | Emergency (ER) | payer SELFPAY ==
[2020-04-19 04:47] LABS: ABSOLUTE BASOPHILS # (AUTO) 0.1 10^3/uL (0.0-0.2); ABSOLUTE EOSINOPHILS # (AUTO) 0.1 10^3/uL (0.0-0.6); ABSOLUTE LYMPHOCYTES (AUTO) 0.9 10^3/uL (0.5-4.7); ABSOLUTE MONOCYTES (AUTO) 0.6 10^3/uL (0.1-1.4); BASOPHILS % (AUTO) 0.7 % (0-2); EOSINOPHILS % (AUTO) 0.7 % (0-6); HEMATOCRIT 34.7 % (36.0-47.0); HEMOGLOBIN 11.5 g/dL (12.0-15.5); LYMPHOCYTES % (AUTO) 6.4 % (13-45); MEAN CORPUSCULAR HEMOGLOBIN 27.4 pg (27.0-33.4); MEAN CORPUSCULAR HGB CONC 33.1 g/dL (32.0-36.0); MEAN CORPUSCULAR VOLUME 83 fl (80-97); MONOCYTES % (AUTO) 4.6 % (3-13); PLATELET COUNT 221 10^3/uL (150-450); RED BLOOD COUNT 4.18 10^6/uL (3.72-5.28); RED CELL DISTRIBUTION WIDTH 13.9 % (11.5-14.0); SEGMENTED NEUTROPHILS % (AUTO) 87.6 % (42-78); TOTAL CELLS COUNTED % (AUTO) 100 %; WHITE BLOOD COUNT 13.7 10^3/uL (4.0-10.5)
[2020-04-19 05:03] LABS: ALBUMIN 4.1 g/dL (3.5-5.0); ALKALINE PHOSPHATASE 81 U/L (38-126); ANION GAP 7 (5-19); ASPARTATE AMINO TRANSFERASE 16 U/L (14-36); BILIRUBIN,DIRECT 0.1 mg/dL (0.0-0.4); BILIRUBIN,TOTAL 0.8 mg/dL (0.2-1.3); BLOOD UREA NITROGEN 12 mg/dL (7-20); CALCIUM 9.1 mg/dL (8.4-10.2); CARBON DIOXIDE 26 mmol/L (22-30); CHLORIDE 106 mmol/L (98-107); GLUCOSE 109 mg/dL (75-110); POTASSIUM 3.5 mmol/L (3.6-5.0); TOTAL PROTEIN 7.4 g/dL (6.3-8.2)
[2020-04-19 06:12] LABS: APPEARANCE,URINE SLIGHTLY-CLOUDY; BILIRUBIN,URINE NEGATIVE (NEGATIVE); COLOR,URINE YELLOW; GLUCOSE, URINE NEGATIVE (NEGATIVE); KETONES,URINE NEGATIVE (NEGATIVE); LEUKOCYTE ESTERASE,URINE TRACE (NEGATIVE); NITRITE,URINE NEGATIVE (NEGATIVE); PROTEIN,URINE 30 mg/dL (NEGATIVE); URINE SPECIFIC GRAVITY 1.021; UROBILINOGEN,URINE NEGATIVE mg/dL (<2.0)
[2020-04-19] MEDS ORDERED: NORMAL SALINE 1000 ML 1,000 ML IV ONE (08:52)
--- NOTE | 2020-04-19 09:59 | RADIOLOGY REPORT (SQ) ---
EXAM DESCRIPTION: U/S NON OB PEL TV W/DOPPLER IMAGES COMPLETED DATE/TIME: 04/19/2020 9:30 am REASON FOR STUDY: bilat pelvic pain COMPARISON: None. TECHNIQUE: Dynamic and static grayscale images acquired of the pelvis via transvaginal approach and recorded on PACS. Additional selected color Doppler and spectral images recorded. LIMITATIONS: None. FINDINGS: UTERUS: Normal size. There appears to be a focus of herniated uterine tissue into the C-s ection scar. This is in the anterior lower uterine segment. ENDOMETRIAL STRIPE: No focal or generalized thickening. No masses. CERVIX: No nabothian cysts. RIGHT OVARY AND DOPPLER: Normal size. No worrisome masses. Normal arterial vascular flow without evid ence for torsion. 3 cm cyst. LEFT OVARY AND DOPPLER: Normal size. Normal arterial vascular flow without evidence for torsion. Hyperechoic nodule measuring 1 cm. Differential includes hemorrhagic cysts resolving versus dermoid FREE FLUID: None noted. OTHER: No other significant finding. MEASUREMENTS: UTERUS: 9 x 6 x 5 cm ENDOMETRIAL STRIPE: 8 mm RIGHT OVARY: 4 cm LEFT OVARY: 2 cm IMPRESSION: 3 cm right ovarian cyst. Echogenic lesion left ovary differential being resolving hemorrhagic cyst versus dermoid. Apparent focal herniation of tissue in the lower uterine segment into the scar. COMMENT: Followup of asymptomatic indeterminate ovarian cysts detected by ultrasound in PREMENOPAUS [place] patients Cyst with findings suggestive of, but not classic for, hemorrhagic cyst, endometrioma or dermoid: *6-12 week followup US; if not a resolving hemorrhagic cyst, continued US or MRI followup; if endomet rioma or dermoid still not confirmed, consider surgical consultation Note: If cyst is clinically symptomatic or otherwise concerning, other followup may be warranted. Based on recommendations of the Society for Radiologists in Ultrasound Consensus Conference Statement 2010 on management of asymptomatic ovarian and other adnexal cysts imaged at ultrasound. TECHNICAL DOCUMENTATION: JOB ID: [id number] 2010 [employer]- All Rights Reserved Rev Reading location - IP/workstation name: [email or web address]
[2020-04-19] MEDS ORDERED: ACETAMINOPHEN 1,000 MG/100 ML RTUPB IV ONE (11:31)
--- NOTE | 2020-04-19 12:12 | RADIOLOGY REPORT (SQ) ---
EXAM DESCRIPTION: CT ABD/PELVIS WITH IV ORAL IMAGES COMPLETED DATE/TIME: 04/19/2020 10:42 am REASON FOR STUDY: bilat abd/pelvic pain COMPARISON: Pelvis ultrasound same date. TECHNIQUE: CT scan of the abdomen and pelvis performed using helical scanning technique with dynamic intravenous contrast injection. No oral contrast. Images reviewed with lung, soft tissue, and bone windows. Reconstructed coronal and sagittal MPR images reviewed. Delayed images for evaluation of the urinary system also acquired. All images stored on PACS. All CT scanners at this facility use dose modulation, iterative reconstruction, and/or weight based d osing when appropriate to reduce radiation dose to as low as reasonably achievable (ALARA). [facility]: Dose Right [facility]: CareDose [facility]: Dose Right [facility]: Teradose 4D [facility]: [employer] CONTRAST TYPE AND DOSE: contrast/concentration: Isovue 350.00 mmol/ml; Total Contrast Delivered: 96. 0 ml; Total Saline Delivered: 59.9 ml RENAL FUNCTION: None required. The patient is less than 50 years old. RADIATION DOSE: CT Rad equipment meets quality standard of care and radiation dose reduction techniq ues were employed. CTDIvol: 10.6 - 14.0 mGy. DLP: 1307 mGy-cm.. LIMITATIONS: None. FINDINGS: LOWER CHEST: No significant findings. No nodules or infiltrates. LIVER: Normal size. No masses. No dilated ducts. SPLEEN: Normal size. No focal lesions. PANCREAS: No masses. No significant calcifications. No adjacent inflammation or peripancreatic fluid collections. Pancreatic duct not dilated. GALLBLADDER: No identified stones by CT criteria. No inflammatory changes to suggest cholecystitis. ADRENAL GLANDS: No significant masses or asymmetry. RIGHT KIDNEY AND URETER: No solid masses. No significant calcifications. No hydronephrosis or hyd roureter. LEFT KIDNEY AND URETER: No solid masses. No significant calcifications. No hydronephrosis or hydr oureter. AORTA AND VESSELS: No aneurysm. No dissection. Renal arteries, SMA, celiac without stenosis. RETROPERITONEUM: No retroperitoneal adenopathy, hemorrhage or masses. BOWEL AND PERITONEAL CAVITY: No masses or inflammatory changes. No free fluid or peritoneal masses. APPENDIX: Normal. PELVIS: Uterus has normal size and contour. The right ovary is enlarged with a dominant right ovaria n follicle measuring 4.7 x 3.75 4.1 cm for total right ovarian volume of 37 mL. Small amount of flui d adjacent to the right ovary in the right pelvic cul de sac. The left ovary has normal size. No ad nexal mass. No pelvic adenopathy. Urinary bladder has normal contour and appearance. No bladder wa ll thickening, intraluminal bladder mass or debris. ABDOMINAL WALL: No masses. No hernias. BONES: No significant or acute findings. OTHER: No other significant finding. IMPRESSION: Enlarged right ovary with dominant right ovarian follicle. Follow-up as previously lauri mmended. TECHNICAL DOCUMENTATION: JOB ID: [id number] Quality ID # [id number]: Final reports with documentation of one or more dose reduction techniques (e.g., Au tomated exposure control, adjustment of the mA and/or kV according to patient size, use of iterative reconstruction technique) 2010 [employer]- All Rights Reserved Reading location - IP/workstation name: [email or web address]
--- NOTE | 2020-04-19 13:23 | ER Document Report ---
Entered by GUADALUPE CHEATHAM SCRIBE 04/19/20 0931 Acting as scribe for:GRAYSON EM MD ED General - General Chief Complaint: Abdominal Pain Stated Complaint: ABDOMINAL PAIN Time Seen by Provider: 04/19/20 07:44 Information source: Patient Notes: This 24 year old female patient presents to the ED today with complaints of bilateral lower quadrant abdominal pain that began last night. 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 Patient reports history of ovarian cysts and last menstrual period was 03/11/20. Patient states she is now spotting and going to start her cycle. Denies abnormal vaginal discharge, back pain, flank pain, sore throat, N/V/D, pain or discomfort with urination, or burning. TRAVEL OUTSIDE OF THE [place] IN LAST 30 DAYS: No - Related Data Allergies/Adverse Reactions: cephalexin [From Keflex] Allergy (Verified 03/02/19 05:48) latex Allergy (Verified 03/02/19 05:48) sulfamethoxazole [From Bactrim] Allergy (Verified 03/02/19 05:48) trimethoprim [From Bactrim] Allergy (Verified 03/02/19 05:48) Past Medical History - General Information source: Patient, H Records - Social History Smoking Status: Never Smoker Cigarette use (# per day): No Chew tobacco use (# tins/day): No Frequency of alcohol use: None Drug Abuse: None Lives with: Family Family History: Reviewed & Not Pertinent Pulmonary Medical History: Reports: Hx Bronchitis - as a child, Hx Pneumonia - as a child Renal/ Medical History: Reports: Hx Ovarian Cysts Past Surgical History: Reports: Hx Section Review of Systems - Review of Systems Constitutional: No symptoms reported EENT: See HPI. denies: Throat pain Cardiovascular: No symptoms reported Respiratory: No symptoms reported Gastrointestinal: See HPI, Abdominal pain - bilateral lower quadrants. denies: Diarrhea, Nausea, Vomiting Genitourinary: See HPI. denies: Burning, Flank pain, Pain Female Genitourinary: See HPI, Last menstrual period - 03/11/20. denies: Vaginal discharge Musculoskeletal: See HPI. denies: Back pain Skin: No symptoms reported Hematologic/Lymphatic: No symptoms reported Neurological/Psychological: No symptoms reported -: Yes All other systems reviewed and negative Physical Exam - Vital signs Vitals: Temp Pulse Resp BP Pulse Ox 98.8 F 84 16 121/62 98 04/19/20 04:14 04/19/20 04:14 04/19/20 04:14 04/19/20 04:14 04/19/20 04:14 - General General appearance: Appears well, Alert - HEENT Head: Normocephalic, Atraumatic Eyes: Normal Pupils: PERRL - Respiratory Respiratory status: No respiratory distress Chest status: Nontender Breath sounds: Normal Chest palpation: Normal - Cardiovascular Rhythm: Regular Heart sounds: Normal auscultation, S1 appreciated, S2 appreciated Murmur: No - Abdominal Inspection: Other - soft Distension: No distension Bowel sounds: Normal Tenderness: Guarding Notes: Rebound tenderness to the bilateral lower quadrants, L>R. - Back Back: Nontender. No: CVA tenderness - Extremities General upper extremity: Normal inspection, Normal ROM General lower extremity: Normal inspection, Normal ROM. No: Edema - Neurological Neuro grossly intact: Yes Cognition: Normal Orientation: AAOx4 Jasiel Coma Scale Eye Opening: Spontaneous Jasiel Coma Scale Verbal: Oriented Jasiel Coma Scale Motor: Obeys Commands Jasiel Coma Scale Total: 15 Speech: Normal Motor strength normal: LUE, RUE, LLE, RLE Sensory: Normal - Psychological Associated symptoms: Normal affect, Normal mood - Skin Skin Temperature: Warm Skin Moisture: Dry Skin Color: Normal Course - Re-evaluation Re-evalutation: 04/19/20 12:54 Patient reports that her abdominal pain has improved. Patient has had an ultrasound as well as a CT scan of abdomen pelvis. Patient is found to have a right-sided ovarian follicle cyst and enlargement most likely patient does have a small hemorrhage that caused her to have peritoneal signs of pain. No other complication was seen on the studies that were done. 04/19/20 13:[address] Gama urban and regional planner OB forestry engineer and per discussion we d ecided it would be best to place place patient on ciprofloxacin along with her Motrin to treat this ruptured ovarian cyst. - Vital Signs Vital signs: Temp Pulse Resp BP Pulse Ox 98.8 F 84 16 121/62 98 04/19/20 04:14 04/19/20 04:14 04/19/20 04:14 04/19/20 04:14 04/19/20 04:14 04/19/20 12:55 Vital signs stable - Laboratory Results Result Diagrams: 04/19/20 04:35 04/19/20 04:35 Laboratory Results Interpreted: 04/19/20 04/19/20 04/19/20 04:35 04:35 05:46 WBC 13.7 H Hgb 11.5 L Hct 34.7 L Lymph % (Auto) 6.4 L Absolute Neuts (auto) 12.0 H Seg Neutrophils % 87.6 H Potassium 3.5 L Lactic Acid Urine Protein 30 H Urine Blood LARGE H Ur Leukocyte Esterase TRACE H 04/19/20 08:56 WBC Hgb Hct Lymph % (Auto) Absolute Neuts (auto) Seg Neutrophils % Potassium Lactic Acid 0.6 L Urine Protein Urine Blood Ur Leukocyte Esterase 04/19/20 12:55 White blood cell count elevated and large amount of blood trace leukocyte esterase on urinalysis. Critical Laboratory Results Reviewed: No Critical Results - Radiology Results Radiology Results Interpreted: 04/19/20 12:56 Transvaginal US 04/19/20 08:53 IMPRESSION: 3 cm right ovarian cyst. Echogenic lesion left ovary differential being resolving hemorrhagic cyst versus dermoid. Apparent focal herniation of tissue in the lower uterine segment into the C- section scar. Abdomen/Pelvis CT 04/19/20 11:30 IMPRESSION: Enlarged right ovary with dominant right ovarian follicle. Follow- up as previously recommended. Ultrasound pelvis shows 3 cm right ovarian cyst most likely hemorrhagic cyst versus dermoid. Also patient has a little small focal herniation of tissue in the lower uterine cyst segment into the scar. Patient also has abdominal pelvis CT which discloses the only abnormality is a enlarged right lobe of ovary with dominant right ovarian follicle. Critical Radiology Results Reviewed: No Critical Results Discharge - Discharge Clinical Impression: Rupture of cyst of right ovary Condition: Stable Disposition: HOME, SELF-CARE Additional Instructions: Ovarian Cyst Your examination shows the presence of an ovarian cyst. This is a ball of fluid attached to the ovary. Ovarian cysts in women of child-bearing age are usually innocent. However, the cyst may cause pain when it grows or bursts. An innocent ovarian cyst will usually go away by itself. When the cyst becomes painful, you should rest. Pain medication may be required. Some women find a hot water bottle soothing. The pain usually resolves within one or two days. After menopause, an ovarian cyst may mean a tumor, and requires more aggressive evaluation -- usually surgery is recommended to remove or biopsy the cyst. A very large cyst requires evaluation at any age. Most cysts (even the innocent ones) require follow-up examination. Call the doctor or return at any time if the pain increases significantly, if you become faint, or if you experience vaginal bleeding. Treatment for your ovarian cyst will be ciprofloxacin 500 mg 1 tablet twice a day (safe and breast-feeding), and ibuprofen that you are taking as needed for pain. Also your follow-up visit will be with Dr. Peri Gama, OB forestry engineer and she asked to have you follow-up within 1 to 2 weeks. Prescriptions: Ciprofloxacin HCl [Cipro 500 mg Tablet] 500 mg PO BID 5 Days #10 tablet Referrals: PERI GAMA MD [ACTIVE PROVISIONAL STAFF] - Follow up in 1 week I personally performed the services described in the documentation, reviewed and edited the documentation which was dictated to the scribe in my presence, and it accurately records my words and actions.
[2020-04-19 13:50] VITALS: BP 127/68
== END 2020-04-19 13:51 | disposition home or self-care (01) ==
LOC: ER 03:48
DX: N83.201 Unspecified ovarian cyst, right side (principal); R10.30 Lower abdominal pain, unspecified; Z91.040 Latex allergy status; Z88.3 Allergy status to other anti-infective agents
CPT/HCPCS: 99285; 96360; 96361; 36415; 83605; 83690; 84703; 85025; 81025; 80053; 81001; 76830; 93976; 74177; J7030